=== PATIENT | male | born 1980 | race Caucasian/White ===

== ENCOUNTER 2016-10-29 18:40 | Emergency (ER) | payer OTHER ==
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
--- NOTE | 2016-10-29 19:18 | ER PHYSICIAN DOCUMENTATION ---
Physician Documentation [facility] Name:Darinel Plaza Age:36 yrs Sex:Male :1980 Arrival Date:10/29/2016 Time:18:40 BedTrauma-A Private MD: Figueroa Sidhu Disposition: 10/29/16 18:52 Patient has left against medical advice. Impression: Lower Extremity Pain. - Patients states they are going to Home/Self Care. - Condition is Good. - Discharge Instructions: Knee - KNEE PAIN, Uncertain Cause. Follow up: Private Physician; When: As needed; Reason: Continuance of care. - Problem is new. - Symptoms have improved. - Notes: You did not want me to see you. You left against medical advice. Historical: - Allergies: No known drug Allergies; - Home Meds: 1. escitalopram 10 mg oral tab 1 tab once daily for Major Depressive Disorder 2. gabapentin 300 mg oral cap 1 cap 3 times per day for PTSD? Mood disorder - PMHx: Depression ; PTSD; - PSHx: None; - Tetanus: < 10 years. - Ebola Screening: : Patient negative for fever greater than or equal to 101.5 degrees Fahrenheit, and additional compatible Ebola Virus Disease symptoms. Patient denies exposure to infectious person. Patient denies travel to an Ebola-affected area in the 21 days before illness onset. . - Immunization history: Flu Vaccine < 1 year. - Social history: Smoking status: Patient uses tobacco products, current every day smoker. Vital Signs: 10/29 18:47 BP 125 / 89; Pulse 120; Resp 12; Temp 98.7(O); Pulse Ox 92% on R/A; Weight 81.65 kg arc (R); Height 6 ft. 1 in. (185.42 cm) (R); Pain 0/10; 19:17 BP 126 / 74; Pulse 107; Resp 16; Pulse Ox 94% on R/A; lp 18:47 Body Mass Index 23.75 (81.65 kg, 185.42 cm) arc MDM: 18:49 Patient medically screened. jm 19:47 ED course: Pt in some sort of [facility] [place]. Pt came in by [facility] for knee pain. Pt states he does jm not want to be seen by an ER doctor and wishes to leave. Pt is A&Ox4. Pt understands that he may have life threatening diseases that we go undiagnosed w/o treatment. He understand and states that he is "fine". Pt signed AMA paperwork and left under police custody. . Dispensed Medications: No medications were administered Signatures: Laly Blanc RN Figueroa Childers lp, MD MD jm
== END 2016-10-29 19:18 | disposition left against medical advice (07) ==
LOC: ER 18:40
DX: M79.604 Pain in right leg (principal); F17.210 Nicotine dependence, cigarettes, uncomplicated
CPT/HCPCS: 99281